=== PATIENT | female | born 1995 | race Caucasian/White ===

== ENCOUNTER 2016-06-22 11:50 | Emergency (ER) ==
[2016-06-22 12:01] VITALS: BP 162/101
--- NOTE | 2016-06-22 12:10 | PROVIDER DOCUMENTATION ---
[facility] <Rhonda LandaverdeAntwan - Last Filed: 06/22/16 12:09> - General Source: patient - History of Present Illness-[facility] Location: reports: ear (R), ear (L), throat Quality of Pain: reports: aching, pressure Severity: reports: mild Onset/Duration: reports: gradual, 3 days ago Timing: reports: still present, constant Prearrival Treatment: Initiated no prearrival treatment Associated Symptoms: reports: cough, fever, sore throat. denies: ear drainage, sinus infection, tooth pain, voice change Locality of Occurance: Home Similar Symptoms Previously?: No Recently seen or treated by another doctor?: No <Rajan Celaya - Last Filed: 06/22/16 12:22> - General Chief Complaint: Sore Throat Stated Complaint: COLD SX Time Seen by Provider: 06/22/16 12:05 Allergies/Adverse Reactions: Patient Allergies Allergy/AdvReac Type Severity Reaction Status Date / Time No Known Allergies Allergy Verified 06/01/16 18:57 - History of Present Illness-[facility] Nature of Presenting Problem: patient is as 21 yo F that presents with 3 days of cough, sore throat, earache( bilaterally), fever, and headache. (Rajan Celaya) Review of Systems - Adult - REVIEW OF SYSTEMS - ADULT Constitutional: reports: fever. denies: chills Eyes: reports: no symptoms reported Ears, Nose, Mouth & Throat: reports: ear pain, sinus problem, throat pain Cardiovascular: denies: chest pain, palpitations, syncope Respiratory: reports: cough. denies: shortness of breath, wheezing Gastrointestinal: denies: abdominal pain, diarrhea, frequent heartburn, nausea, vomiting Genitourinary: reports: no symptoms reported Musculoskeletal: reports: no symptoms reported Integumentary: reports: no symptoms reported Neurological: reports: no symptoms reported Psychiatric: reports: no symptoms reported Endocrine: reports: no symptoms reported Hematologic/Lymphatic: reports: no symptoms reported Allergic/Immunologic: reports: no symptoms reported All Other Systems: Reviewed and Negative <Rajan Celaya - Last Filed: 06/22/16 12:22> Past History - Adult - PAST MEDICAL HISTORY-ADULT Gastrointestinal: reports: GERD Psychiatric: reports: other (ADD) - PRIOR SURGERIES/PROCEDURES Surgical/Procedure History: reports: , tonsillectomy, other ( adenoidectomy) - IMMUNIZATION STATUS Childhood Immunizations: See Nurse Assessment Flu Vaccine: See Nurse Assessment - FAMILY HISTORY Family History: reviewed, not pertinent <Rhonda Landaverde - Last Filed: 06/22/16 12:09> - PAST MEDICAL HISTORY-ADULT Review of Records: reports: Old Records Reviewed, Nursing Assessment Review, Medications Reviewed Gastrointestinal: reports: GERD Psychiatric: reports: other (add) - PRIOR SURGERIES/PROCEDURES Surgical/Procedure History: reports: , tonsillectomy - IMMUNIZATION STATUS Childhood Immunizations: See Nurse Assessment Flu Vaccine: See Nurse Assessment - FAMILY HISTORY Family History: reviewed, not pertinent - SOCIAL HISTORY Smoking: cigarettes, less than 1 pack/day Living Situation: family <Rajan Celaya - Last Filed: 06/22/16 12:22> Physical Exam- EENT - Physical Exam EENT Initial Vital Signs Reviewed: Yes General Appearance: alert, no apparent distress Eye Exam: bilateral eye: normal inspection, PERRL Ear Exam: right ear: TM normal, left ear: TM red Nasal Exam: normal inspection. negative: foreign body Throat Exam: normal mouth inspection, pharynx normal Neck: full range of motion, normal inspection. negative: lymphadenopathy Respiratory: lungs clear, normal breath sounds, no respiratory distress, no accessory muscle use Cardiovascular: regular rate, rhythm, no edema, no murmur Abdominal Exam: normal bowel sounds, non tender, soft, no organomegaly, no pulsatile mass Back Exam: no CVA tenderness, no vertebral tenderness Extremity: normal range of motion, non-tender, normal inspection, no pedal edema Integumentary: normal color, normal turgor, warm/dry Neurologic: grossly normal, no motor/sensory deficits Psych/Mental Status: normal mood/affect, normal thought content, normal thought process, oriented x 3 <Rajan Celaya - Last Filed: 06/22/16 12:22> Progress <Rhonda Landaverde - Last Filed: 06/22/16 12:09> <Rajan Celaya - Last Filed: 06/22/16 12:22> - PLAN OF CARE/RESULTS Progress/Plan/Lab Results: Vital Signs Temp Pulse Resp BP Pulse Ox 06/22/16 11:58 99 F 85 18 162/101 97 No Known Allergies Allergy (Verified 06/01/16 18:57) Amoxicillin [Amoxil] 500 mg PO BID #20 capsule 06/22/16 (Rajan Celaya) Departure - Departure Time of Disposition Order: 12:09 Certified Medical Emergency: Emergent <Rhonda Landaverde - Last Filed: 06/22/16 12:09> <Rajan Celaya - Last Filed: 06/22/16 12:22> - Departure DIAGNOSIS: Left acute otitis media Pharyngitis Qualifiers: Pharyngitis/tonsillitis etiology: unspecified etiology Qualified Code(s): J02.9 - Acute pharyngitis, unspecified Disposition: HOME 01 Condition: Stable Additional Instructions: ED Follow Up Instructions: You have been treated by a care provider in the Emergency Department. These instructions are being provided to you so you can have an understanding of how to care for yourself upon discharge. Upon discharge from the Emergency Department, you are responsible for making arrangements for follow-up care by a physician of your choice. Take all prescribed medications as directed. Return to the Emergency Department immediately for any new or worsening symptoms. You may call the Physician Referral phone number at [phone] to obtain a list of Physicians who are taking new patients. Prescriptions: Amoxicillin [Amoxil] 500 mg PO BID #20 capsule Referrals: Violeta Frye MD [STAFF PHYSICIAN] - None,PCP [Primary Care Provider] - Forms: Return to School/Parent Work Instructions: Amoxicillin capsules or tablets, Otitis Media, Adult, Easy-to- Read, Pharyngitis, [id number] Attestation - Scribe Verification/Attestation Scribe:: Rajan Celaya Acting as Scribe for:: Rhonda Landaverde Scribe documention review:: This chart was documented by a scribe and accurately reflects the service the provider performed and the decisions made by the provider. - Physician/ Mid-level Attestation Patient care was provided by Mid-level provider (COIN MACHINE SUPERVISOR/PA):: Yes Mid-level provider:: Rhonda Landaverde Mid-level documentation review:: The Mid-level provider documentation, treatment plan and medical decision making was reviewed by the physician who agrees with all treatment and medical decision making by the MLP. <Rajan Celaya - Last Filed: 06/22/16 12:22> Physician Attestation
== END 2016-06-22 12:25 | disposition home or self-care (01) ==
LOC: P.ED 11:50
DX: H66.92 Otitis media, unspecified, left ear (principal); J02.9 Acute pharyngitis, unspecified; H92.03 Otalgia, bilateral; R05 Cough; R50.9 Fever, unspecified; R51 Headache; F17.210 Nicotine dependence, cigarettes, uncomplicated
CPT/HCPCS: 99281